=== PATIENT | male | born 1965 | race Caucasian/White ===

== ENCOUNTER → 2017-01-17 | Outpatient (CLI) | payer BC ==
[2017-01-17 08:53] LABS: CH 33.9; CHCM 35.3; HCT 46.8 % (39.0-53.0); HDW 2.63; MCH 32.8 pg (25.0-35.0); MCHC 34.1 g/dL (31.0-37.0); MCV 96.3 fL (80.0-100.0); Mean Platelet Volume 6.6; RBC 4.87 m/uL (4.30-5.90); RDW 12.3 % (11.5-15.5); WBC 6.4 k/uL (3.8-10.6)
[2017-01-17 09:29] LABS: ALT 51 U/L (21-72); AST 32 U/L (17-59); Alkaline Phosphatase 61 U/L (38-126); Anion Gap 10 mmol/L; Blood Urea Nitrogen 16 mg/dL (9-20); Calcium 9.3 mg/dL (8.4-10.2); Carbon Dioxide 27 mmol/L (22-30); Chloride 109 mmol/L (98-107); Cholesterol 227 mg/dL (<200); Glucose 85 mg/dL (74-99); HDL Cholesterol 45 mg/dL (40-60); Non-African American GFR(MDRD) >60 (>60 ml/min/1.73 sqM); Potassium 5.2 mmol/L (3.5-5.1); Sodium 146 mmol/L (137-145); Total Bilirubin 0.8 mg/dL (0.2-1.3); Total Protein 7.2 g/dL (6.3-8.2); Triglycerides 158 mg/dL (<150)
[2017-01-17 09:58] LABS: Prostate Specific Antigen 0.83 ng/mL (0.00-4.00)
== END | disposition home or self-care (01) ==
LOC: LABWHC1 08:19
PROVIDERS: ATTEND Internal Medicine
DX: Z00.00 Encounter for general adult medical examination without abnormal findings (principal); Z13.220 Encounter for screening for lipoid disorders; Z13.29 Encounter for screening for other suspected endocrine disorder
CPT/HCPCS: 36415; 80053; 80061; 84153; 84403; 84439; 84443; 85027

== ENCOUNTER → 2018-09-06 | Outpatient (CLI) | payer BC ==
[2018-09-06 10:16] LABS: HCT 46.4 % (39.0-53.0); HGB 15.9 gm/dL (13.0-17.5); MCH 32.8 pg (25.0-35.0); MCHC 34.2 g/dL (31.0-37.0); MCV 95.9 fL (80.0-100.0); Mean Platelet Volume 7.3; Platelet Count 243 k/uL (150-450); RBC 4.84 m/uL (4.30-5.90); RDW 11.9 % (11.5-15.5)
[2018-09-06 10:41] LABS: ALT 45 U/L (21-72); AST 28 U/L (17-59); Albumin 4.3 g/dL (3.5-5.0); Alkaline Phosphatase 56 U/L (38-126); Anion Gap 9 mmol/L; Blood Urea Nitrogen 18 mg/dL (9-20); C Reactive Protein 8.9 mg/L (<10.0); Calcium 9.5 mg/dL (8.4-10.2); Carbon Dioxide 26 mmol/L (22-30); Chloride 108 mmol/L (98-107); Cholesterol 238 mg/dL (<200); Glucose 82 mg/dL (74-99); HDL Cholesterol 42 mg/dL (40-60); LDL Cholesterol,Calculated 171 mg/dL (0-99); Potassium 4.5 mmol/L (3.5-5.1); Sodium 143 mmol/L (137-145); Total Bilirubin 0.9 mg/dL (0.2-1.3); Total Protein 7.4 g/dL (6.3-8.2); Triglycerides 123 mg/dL (<150)
[2018-09-06 10:52] LABS: T4, Free (Free Thyroxine) 0.79 ng/dL (0.78-2.19)
[2018-09-06 11:06] LABS: Prostate Specific Antigen 0.78 ng/mL (0.00-4.00)
== END ==
LOC: LABWHC1 08:26
PROVIDERS: ATTEND Obstetrics & Gynecology
DX: E78.00 Pure hypercholesterolemia, unspecified (principal); R53.83 Other fatigue; Z13.29 Encounter for screening for other suspected endocrine disorder
CPT/HCPCS: 36415; 80053; 80061; 83090; 84153; 84402; 84403; 84439; 84443; 85027; 86140

== ENCOUNTER → 2019-07-10 | Outpatient (CLI) | payer BC | END | disposition home or self-care (01) | LOC: LABWHC1 12:38 | PROVIDERS: ATTEND Internal Medicine | DX: K21.9 Gastro-esophageal reflux disease without esophagitis (principal); R11.0 Nausea | CPT/HCPCS: 87338 ==

== ENCOUNTER → 2020-01-14 | Outpatient (CLI) | payer BC | END | disposition home or self-care (01) | LOC: PROCWHC3 07:22 | PROVIDERS: ATTEND Obstetrics & Gynecology | DX: J11.1 Influenza due to unidentified influenza virus with other respiratory manifestations (principal) | CPT/HCPCS: 87502 ==

== ENCOUNTER → 2020-08-16 | Outpatient (CLI) | payer BC ==
--- NOTE | 2020-08-16 10:02 | XR ---
EXAMINATION TYPE: XR ribs bilateral DATE OF EXAM: 08/16/2020 COMPARISON: None HISTORY: Chest pain cervical pain pain lower ribs TECHNIQUE: Bilateral ribs are examined in 2 projections each. FINDINGS: No acute fractures are evident. No displaced rib fractures are evident. No pneumothorax is evident. Incidental note is made of bilateral renal stones.This measures 0.5 cm inferior pole left kidney 0.2 cm inferior pole right kidney and 0.2 cm inferior pole right kidney. IMPRESSION: 1. Normal bilateral ribs. 2. A 0.5 cm inferior pole left renal stone. Smaller 0.2 cm superior left renal stone may be present a s well. A 0.2 cm inferior pole right renal stone may be present.
--- NOTE | 2020-08-16 10:05 | XR ---
EXAMINATION TYPE: XR chest 2V DATE OF EXAM: 08/16/2020 COMPARISON: None INDICATION: Lower rib pain TECHNIQUE: Frontal and lateral views of the chest are obtained. FINDINGS: The heart size is normal. The pulmonary vasculature is normal. The lungs are clear. No pneumothorax is evident. The osseous structures as visualized are intact. IMPRESSION: 1. No acute pulmonary process. 2. No acute process evident.
--- NOTE | 2020-08-16 16:28 | XR ---
EXAMINATION TYPE: XR cervical spine comp DATE OF EXAM: 08/16/2020 COMPARISON: None HISTORY: Cervical pain TECHNIQUE: Five-view cervical spine FINDINGS: Prevertebral space is normal. There is exaggeration of the cervical lordosis. Posterior spi nal lamellar line is intact There is narrowing of disc height C3-4 through C6-7. Some left foraminal narrowing at C5-C6 is presen t remaining foramen are patent. Odontoid is visualized appears intact. Submental vertex and open-mout h odontoid views are obtained. Incisors limit the open-mouth odontoid view IMPRESSION: 1. Mild foraminal narrowing left C5-6. 2. Degenerative disc changes diffusely through the cervical spine
== END | disposition home or self-care (01) ==
LOC: RADXRMAIN 09:04
PROVIDERS: ATTEND Internal Medicine
DX: M48.02 Spinal stenosis, cervical region (principal); M50.30 Other cervical disc degeneration, unspecified cervical region; R07.89 Other chest pain
CPT/HCPCS: 71046; 71110; 72050

== ENCOUNTER → 2020-10-17 | Outpatient (CLI) | payer BC ==
--- NOTE | 2020-10-17 15:19 | CT ---
EXAMINATION TYPE: CT angio head DATE OF EXAM: 10/17/2020 COMPARISON: None HISTORY: 54-year-old male with Headaches TECHNIQUE: Contiguous axial scanning of the head performed without and with IV Contrast, patient inje cted with 100 mL of Isovue 300. Coronal/sagittal MIP reconstructions performed. 3-D reconstructions g enerated on a dedicated independent workstation. CT DLP: 2116.9 mGycm Automated exposure control for dose reduction was used. FINDINGS: Initial noncontrast CT head shows no evidence for acute intracranial hemorrhage, acute ischemic ledesma e, mass, mass effect, midline shift, or extra-axial fluid collection. No hydrocephalus. Slight asymme trically larger right lateral ventricle compatible with congenital variation. Moderate mucosal thickening left ethmoid air cells. Leftward nasal septal deviation. Mastoid air cell s well pneumatized. Orbits and globes are intact. Following IV contrast administration, we note a hypoplastic right vertebral artery that appears to te rminate as a PICA branch. There is also persistent origin right posterior cerebral artery. The bilateral internal carotid arteries are patent. Both anterior and posterior circulations are patent. 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 No aneurysmal change is identified IMPRESSION: 1. NONCONTRAST CT: NO ACUTE INTRACRANIAL ABNORMALITY SEEN. 2. 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 NO LARGE VESSEL INTRACR ANIAL ARTERIAL OCCLUSION, SIGNIFICANT STENOSIS, OR ANEURYSMAL CHANGE IS SEEN. 3. INCIDENTAL: MODERATE CHRONIC LEFT ETHMOID SINUS DISEASE. LEFTWARD NASAL SEPTAL DEVIATION.
== END | disposition home or self-care (01) ==
LOC: RADCTMAIN 13:39
PROVIDERS: ATTEND Internal Medicine
DX: Q28.3 Other malformations of cerebral vessels (principal)
CPT/HCPCS: 70496; Q9967

== ENCOUNTER → 2021-03-28 | Outpatient (CLI) | payer BC ==
--- NOTE | 2021-03-28 17:03 | XR ---
EXAMINATION TYPE: XR KUB DATE OF EXAM: 03/28/2021 4:47 PM CLINICAL HISTORY: Right-sided flank pain TECHNIQUE: Supine images of the abdomen and pelvis were obtained COMPARISON: Rib radiograph 08/16/2020 demonstrated 5 mm and 2 mm calcifications of the left renal shad ow and 2 mm calcification over the right renal shadow. FINDINGS: There is a nonspecific bowel gas pattern. The right renal interpolar and upper polar shadow is obscured by overlying colon. The calcification over the lower pole of the right kidney seen on comparison is not appreciated on current exam. There is likely a 2 mm calcification over the upper pole of the left kidney which is redemonstrated. The 5 mm calcification over the lower pole of the left kidney seen on 08/16/2020 comparison is not seen on current exam overlying the kidney. There are pelvic phleboliths bilaterally. There is also a very coarse calcification over the pelvis which d oes not have typical appearance for phlebolith. Right lower quadrant surgical clips. Osseous structur es are intact. Mild degenerative changes of the bilateral hips, left greater than right. IMPRESSION: 1. Nonspecific bowel gas pattern. 2. Of the 3 calcifications overlying the renal shadows bilaterally on 08/16/2020 comparison, only the 2 mm calcification over the upper pole of the left kidney is seen again on current exam. 3. Calcifications over the pelvis, some of which are indeterminate for phleboliths versus ureterovesi cular junction/bladder calculi. If there is persistent clinical concern, CT exam can be performed for further evaluation.
== END | disposition home or self-care (01) ==
LOC: RADXRMAIN 16:23
PROVIDERS: ATTEND Obstetrics & Gynecology
DX: N28.89 Other specified disorders of kidney and ureter (principal)
CPT/HCPCS: 74018

== ENCOUNTER → 2021-03-29 | Outpatient (CLI) | payer BC ==
--- NOTE | 2021-03-29 19:45 | CT ---
EXAMINATION TYPE: CT abdomen pelvis wo con DATE OF EXAM: 03/29/2021 COMPARISON: None available. HISTORY: Abdominal pain. No contrast. Renal stone protocol CT DLP: 388.5 mGycm Automated exposure control for dose reduction was used. TECHNIQUE: Helical acquisition of images was performed from the lung bases through the pelvis. FINDINGS: LUNG BASES: No significant abnormality is appreciated. LIVER/GB: No significant abnormality is appreciated. PANCREAS: No significant abnormality is seen. SPLEEN: No significant abnormality is seen. ADRENALS: No significant abnormality is seen. KIDNEYS: 3 mm nonobstructing left renal calculi. Multiple nonobstructing right renal calculi, at leas t 3 in number measuring up to 2 mm. No bilateral hydronephrosis. FREE AIR: No free air is visualized RETROPERITONEAL ADENOPATHY: None visualized REPRODUCTIVE ORGANS: No significant abnormality is seen URINARY BLADDER: No significant abnormality is seen. PELVIC ADENOPATHY: None visualized. OSSEOUS STRUCTURES: No acute abnormality is seen. Moderate L5-S1 spondylosis. BOWEL: No significant abnormality is seen. Appendectomy noted. OTHER: Benign prostate calcifications seen. IMPRESSION: NO ACUTE ABNORMALITY. NONOBSTRUCTING RENAL CALCULI.
== END | disposition home or self-care (01) ==
LOC: RADCTMAIN 17:23
PROVIDERS: ATTEND Internal Medicine
DX: N20.0 Calculus of kidney (principal)
CPT/HCPCS: 74176

== ENCOUNTER 2021-04-10 08:17 | Observation (INO) | payer BC ==
[2021-04-10] MEDS ORDERED: ONDANSETRON 4 MG/2 ML VIAL IVP STA (08:31)
[2021-04-10] MEDS ORDERED: SODIUM CHLORIDE 0.9% 1,000 ML IV ONE ×2 (08:31→12:08)
[2021-04-10] MEDS ORDERED: HYDROmorphone 1 MG/ML 1 ML SYRINGE IVP STA (08:31)
[2021-04-10 08:54] LABS: Basophils # (A) 0.1 k/uL (0-0.2); Basophils % (A) 1 %; Eosinophils # (A) 0.1 k/uL (0-0.7); Eosinophils % (A) 2 %; HCT 43.4 % (39.0-53.0); HGB 15.3 gm/dL (13.0-17.5); Lymphocytes # (A) 1.6 k/uL (1.0-4.8); Lymphocytes % (A) 25 %; MCH 33.3 pg (25.0-35.0); MCHC 35.3 g/dL (31.0-37.0); MCV 94.3 fL (80.0-100.0); Mean Platelet Volume 7.2; Monocytes # (A) 0.5 k/uL (0-1.0); Monocytes % (A) 8 %; Neutrophils # (A) 4.2 k/uL (1.3-7.7); Neutrophils % (A) 63 %; Platelet Count 248 k/uL (150-450); RBC 4.61 m/uL (4.30-5.90); RDW 11.6 % (11.5-15.5); WBC 6.6 k/uL (3.8-10.6)
[2021-04-10] MEDS ORDERED: KETOROLAC 15 MG/ML 1 ML VIAL IVP STA ×2 (08:58→10:45)
[2021-04-10 09:05] LABS: Albumin 4.3 g/dL (3.5-5.0); Calcium 9.4 mg/dL (8.4-10.2); Potassium 4.2 mmol/L (3.5-5.1); Total Bilirubin 0.6 mg/dL (0.2-1.3); Total Protein 7.3 g/dL (6.3-8.2)
--- NOTE | 2021-04-10 09:10 | ED ---
General Adult HPI - General Chief complaint: Back Pain/Injury Stated complaint: kidney stone Time Seen by Provider: 04/10/21 08:20 Source: patient, RN notes reviewed, old records reviewed Mode of arrival: ambulatory Limitations: no limitations - History of Present Illness Initial comments: This is a 55-year-old male who presents to the emergency department with left flank pain. Patient was diagnosed recently with kidney stones at the UVJ on both the right and left side. Patient is scheduled for surgery on Saturday. Patient states the pain is becoming unbearable and he is very nauseated. Patient denies any fever chills. Patient denies any chest pain or difficulty breathing. - Related Data Home Medications Medication Instructions Recorded Confirmed Acetaminophen Tab [Tylenol Tab] 1,000 mg PO Q6HR PRN 04/10/21 04/10/21 Ibuprofen [Motrin Ib] 400 - 600 mg PO Q6H PRN 04/10/21 04/10/21 Rosuvastatin Calcium 10 mg PO HS 04/10/21 04/10/21 Zolpidem Tartrate [Ambien Cr] 6.25 mg PO HS PRN 04/10/21 04/10/21 tadalafiL [Tadalafil] 5 mg PO DAILY PRN 04/10/21 04/10/21 Allergies Allergy/AdvReac Type Severity Reaction Status Date / Time No Known Allergies Allergy Verified 04/10/21 09:37 Review of Systems ROS Statement: Those systems with pertinent positive or pertinent negative responses have been documented in the HPI. ROS Other: All systems not noted in ROS Statement are negative. Past Medical History Past Medical History: Hyperlipidemia Additional Past Medical History / Comment(s): kidney stones History of Any Multi-Drug Resistant Organisms: None Reported Past Surgical History: Appendectomy Additional Past Surgical History / Comment(s): kidney stone removal. Past Psychological History: No Psychological Hx Reported Smoking Status: Never smoker Past Alcohol Use History: Occasional Past Drug Use History: None Reported General Exam - General Exam Comments Initial Comments: GENERAL: Patient is well-developed and well-nourished. Patient is nontoxic and well- hydrated and is in moderate distress. ENT: Neck is soft and supple. No significant lymphadenopathy is noted. Oropharynx i s clear. Moist mucous membranes. Neck has full range of motion without eliciting any pain. EYES: The sclera were anicteric and conjunctiva were pink and moist. Extraocular movements were intact and pupils were equal round and reactive to light. Eyelids were unremarkable. PULMONARY: Unlabored respirations. Good breath sounds bilaterally. No audible rales rhonchi or wheezing was noted. CARDIOVASCULAR: There is a regular rate and rhythm without any murmurs gallops or rubs. ABDOMEN: Soft and nontender with normal bowel sounds. SKIN: Skin is clear with no lesions or rashes and otherwise unremarkable. NEUROLOGIC: Patient is alert and oriented x3. Cranial nerves II through XII are grossly intact. Motor and sensory are also intact. Normal speech, volume and content. Symmetrical smile. MUSCULOSKELETAL: Normal extremities with adequate strength and full range of motion. LYMPHATICS: No significant lymphadenopathy is noted PSYCHIATRIC: Normal psychiatric evaluation. Limitations: no limitations Course Vital Signs 04/10/21 04/10/21 08:18 10:32 Temperature 97.5 F L Pulse Rate 69 72 Respiratory 16 18 Rate Blood Pressure 158/96 101/63 O2 Sat by Pulse 96 99 Oximetry Medical Decision Making - Medical Decision Making I spoke with Dr. Montalvo and he wanted the patient to be admitted 23 hour to him and he will take the patient to surgery later today Patient received Dilaudid and Toradol in the emergency department I reviewed the CAT scan and CAT scan showed bilateral UVJ stones with minimal if any high 20. KUB showed stones in the same place as they were previous - Lab Data Result diagrams: 04/10/21 08:43 04/10/21 08:43 Lab Results 04/10/21 04/10/21 04/10/21 Range/Units 08:43 08:43 10:47 WBC 6.6 (3.8-10.6) k/uL RBC 4.61 (4.30-5.90) m/uL Hgb 15.3 (13.0-17.5) gm/dL Hct 43.4 (39.0-53.0) % MCV 94.3 (80.0-100.0) fL MCH 33.3 (25.0-35.0) pg MCHC 35.3 (31.0-37.0) g/dL RDW 11.6 (11.5-15.5) % Plt Count 248 (150-450) k/uL MPV 7.2 Neutrophils % 63 % Lymphocytes % 25 % Monocytes % 8 % Eosinophils % 2 % Basophils % 1 % Neutrophils # 4.2 (1.3-7.7) k/uL Lymphocytes # 1.6 (1.0-4.8) k/uL Monocytes # 0.5 (0-1.0) k/uL Eosinophils # 0.1 (0-0.7) k/uL Basophils # 0.1 (0-0.2) k/uL Sodium 140 (137-145) mmol/L Potassium 4.2 (3.5-5.1) mmol/L Chloride 108 H (98-107) mmol/L Carbon Dioxide 24 (22-30) mmol/L Anion Gap 8 mmol/L BUN 18 (9-20) mg/dL Creatinine 1.13 (0.66-1.25) mg/dL Est GFR (CKD-EPI)AfAm 85 (>60 ml/min/1.73 sqM) Est GFR (CKD-EPI)NonAf 74 (>60 ml/min/1.73 sqM) Glucose 108 H (74-99) mg/dL Calcium 9.4 (8.4-10.2) mg/dL Total Bilirubin 0.6 (0.2-1.3) mg/dL AST 33 (17-59) U/L ALT 43 (4-49) U/L Alkaline Phosphatase 64 (38-126) U/L Total Protein 7.3 (6.3-8.2) g/dL Albumin 4.3 (3.5-5.0) g/dL Amylase 52 (30-110) U/L Lipase 97 (23-300) U/L Urine Color Yellow Urine Appearance Clear (Clear) Urine pH 5.5 (5.0-8.0) Ur Specific [place] 1.025 (1.001-1.035) Urine Protein Trace (Negative) Urine Glucose (UA) Negative (Negative) Urine Ketones Negative (Negative) Urine Blood Large (Negative) Urine Nitrite Negative (Negative) Urine Bilirubin Negative (Negative) Urine Urobilinogen <2.0 (<2.0) mg/dL Ur Leukocyte Esterase Negative (Negative) Urine RBC 86 H (0-5) /hpf Urine WBC 2 (0-5) /hpf Ur Squamous Epith Cells <1 (0-4) /hpf Urine Mucus Occasional H (None) /hpf Disposition Clinical Impression: Kidney stone Disposition: ADMITTED IP TO THIS HOSP Referrals: Eli Starkey MD [Primary Care Provider] - 1-2 days Time of Disposition: 12:08
[2021-04-10] MEDS ORDERED: HYDROmorphone 0.5 MG/0.5 ML SYRINGE IVP STA ×2 (10:46→11:19)
--- NOTE | 2021-04-10 10:46 | XR ---
EXAMINATION TYPE: XR KUB DATE OF EXAM: 04/10/2021 10:20 AM CLINICAL HISTORY: History of kidney stones with left-sided pain today. TECHNIQUE: Two Upright KUB images of the abdomen are obtained. COMPARISON: Abdominal x-ray dated 03/14/2021. CT abdomen and pelvis March 29, 2021. FINDINGS: Small nonobstructing bilateral calculi seen better on CT versus plain films, few are noted on plain films. There is stable bilateral lower pelvic calcifications consistent with distal calculi near UVJ. Surgical clips overlie the right pelvis near sacroiliac joint. No free air. Lung bases are clear. IMPRESSION: As above.
[2021-04-10 11:59] LABS: Mucus,Urine Occasional /hpf; RBC,Urine 86 /hpf (0-5); Squamous Epithelial Cell,Urine <1 /hpf (0-4); WBC,Urine 2 /hpf (0-5)
[2021-04-10 12:04] LABS: Appearance,Urine Clear (Clear); Bilirubin,Urine Negative (Negative); Blood,Urine Large (Negative); Color,Urine Yellow; Glucose,Urine (UA) Negative (Negative); Ketones,Urine Negative (Negative); PH, Urine 5.5 (5.0-8.0); Protein,Urine Trace (Negative); Specific Gravity,Urine 1.025 (1.001-1.035)
[2021-04-10 12:05] LABS: Leukocyte Esterase,Urine Negative (Negative); Nitrite,Urine Negative (Negative); Urobilinogen,Urine <2.0 mg/dL (<2.0)
[2021-04-10] MEDS ORDERED: HYDROmorphone 0.5 MG/0.5 ML SYRINGE IVP PRN (12:10)
--- NOTE | 2021-04-10 12:52 | P.GSHP ---
History of Present Illness H&P Date: 04/10/21 Chief Complaint: Left renal colic Juan Luis is a 55-year-old white male with history of urolithiasis. He has recently experienced urinary urgency and pressure to void. A computed tomography scan of the abdomen and pelvis showed bilateral small renal calculi. Although there is no evidence of hydronephrosis, calcifications are seen bilaterally in the region of the distal ureters suggesting the presence of bilateral distal ureteral calculus at the ureterovesical junctions. He now presents with intractable left flank pain and nausea. - Constitutional Constitutional: Denies chills, Denies fever - Cardiovascular Cardiovascular: Denies chest pain - Respiratory Respiratory: Denies dyspnea - Gastrointestinal Gastrointestinal: Reports nausea - Genitourinary (Male) Genitourinary: Reports flank pain, Reports kidney stones, Denies hematuria Past Medical History Past Medical History: Hyperlipidemia Additional Past Medical History / Comment(s): kidney stones History of Any Multi-Drug Resistant Organisms: None Reported Past Surgical History: Appendectomy Additional Past Surgical History / Comment(s): kidney stone removal. Past Psychological History: No Psychological Hx Reported Smoking Status: Never smoker Past Alcohol Use History: Occasional Past Drug Use History: None Reported Medications and Allergies Home Medications Medication Instructions Recorded Confirmed Type Acetaminophen Tab [Tylenol Tab] 1,000 mg PO Q6HR PRN 04/10/21 04/10/21 History Ibuprofen [Motrin Ib] 400 - 600 mg PO Q6H PRN 04/10/21 04/10/21 History Rosuvastatin Calcium 10 mg PO HS 04/10/21 04/10/21 History Zolpidem Tartrate [Ambien Cr] 6.25 mg PO HS PRN 04/10/21 04/10/21 History tadalafiL [Tadalafil] 5 mg PO DAILY PRN 04/10/21 04/10/21 History Allergies Allergy/AdvReac Type Severity Reaction Status Date / Time No Known Allergies Allergy Verified 04/10/21 09:37 Surgical - Exam Vital Signs Temp Pulse Resp BP Pulse Ox 97.5 F L 69 16 158/96 96 04/10/21 08:18 04/10/21 08:18 04/10/21 08:18 04/10/21 08:18 04/10/21 08:18 - General well developed, well nourished, moderate distress - Respiratory normal respiratory effort - Abdomen Abdomen: soft, non tender, no guarding, no rigid, no rebound - Psychiatric oriented to time, oriented to person, oriented to place, speech is normal, me heri intact Results - Labs 04/10/21 08:43 04/10/21 08:43 Abnormal Lab Results - Last 24 Hours (Table) 04/10/21 04/10/21 Range/Units 08:43 10:47 Chloride 108 H (98-107) mmol/L Glucose 108 H (74-99) mg/dL Urine RBC 86 H (0-5) /hpf Urine Mucus Occasional H (None) /hpf Diabetes panel 04/10/21 Range/Units 08:43 Sodium 140 (137-145) mmol/L Potassium 4.2 (3.5-5.1) mmol/L Chloride 108 H (98-107) mmol/L Carbon Dioxide 24 (22-30) mmol/L BUN 18 (9-20) mg/dL Creatinine 1.13 (0.66-1.25) mg/dL Glucose 108 H (74-99) mg/dL Calcium 9.4 (8.4-10.2) mg/dL AST 33 (17-59) U/L ALT 43 (4-49) U/L Alkaline Phosphatase 64 (38-126) U/L Total Protein 7.3 (6.3-8.2) g/dL Albumin 4.3 (3.5-5.0) g/dL Calcium panel 04/10/21 Range/Units 08:43 Calcium 9.4 (8.4-10.2) mg/dL Albumin 4.3 (3.5-5.0) g/dL Pituitary panel 04/10/21 Range/Units 08:43 Sodium 140 (137-145) mmol/L Potassium 4.2 (3.5-5.1) mmol/L Chloride 108 H (98-107) mmol/L Carbon Dioxide 24 (22-30) mmol/L BUN 18 (9-20) mg/dL Creatinine 1.13 (0.66-1.25) mg/dL Glucose 108 H (74-99) mg/dL Calcium 9.4 (8.4-10.2) mg/dL Adrenal panel 04/10/21 Range/Units 08:43 Sodium 140 (137-145) mmol/L Potassium 4.2 (3.5-5.1) mmol/L Chloride 108 H (98-107) mmol/L Carbon Dioxide 24 (22-30) mmol/L BUN 18 (9-20) mg/dL Creatinine 1.13 (0.66-1.25) mg/dL Glucose 108 H (74-99) mg/dL Calcium 9.4 (8.4-10.2) mg/dL Total Bilirubin 0.6 (0.2-1.3) mg/dL AST 33 (17-59) U/L ALT 43 (4-49) U/L Alkaline Phosphatase 64 (38-126) U/L Total Protein 7.3 (6.3-8.2) g/dL Albumin 4.3 (3.5-5.0) g/dL - Imaging CT scan - abdomen: report reviewed Assessment and Plan (1) Calculus of ureter Current Visit: No Status: Acute Code(s): N20.1 - CALCULUS OF URETER SNOMED Code(s): 81703754 Plan: Cystoscopy, bilateral ureteroscopy with Holmium laser lithotripsy and possible stone basketing, possible left ureteral stent placement. Potential risks include anesthesia, bleeding, infection, inability to successfully remove the calculi, and ureteral injury. A secondary procedure may be required.
[2021-04-10] MEDS ORDERED: IV FLUID CONTINUATION 1,000 ML IV ONE (15:14)
[2021-04-10] MEDS ORDERED: MIDAZOLAM 2 MG/2 ML VIAL IV ONE (15:53)
[2021-04-10] MEDS ORDERED: MIDAZOLAM 2 MG/2 ML VIAL ONE (17:06)
[2021-04-10] MEDS ORDERED: PROPOFOL 10 MG/ML 20 ML VIAL IV ONE (17:06)
[2021-04-10] MEDS ORDERED: fentaNYL (PF) 50 MCG/ML 2 ML AMP ONE (17:06)
[2021-04-10] MEDS ORDERED: LACTATED RINGERS 1,000 ML IV ONE (17:33)
[2021-04-10 18:24] VITALS: TEMP 97.1
--- NOTE | 2021-04-10 18:43 | P.OP ---
Date of Procedure: 04/10/21 Preoperative Diagnosis: Bilateral ureteral calculi Postoperative Diagnosis: Same Procedure(s) Performed: Cystoscopy, bilateral ureteroscopy with Holmium laser lithotripsy and stone basketing Anesthesia: NICK Surgeon: Tommy Montalvo Estimated Blood Loss (ml): 5 IV fluids (ml): 300 Pathology: other (Calculus fragments, sent for chemical analysis) Condition: stable Disposition: PACU Indications for Procedure: Juan Luis is a 55-year-old white male with history of urolithiasis. He has recently experienced urinary urgency and pressure to void. A computed tomography scan of the abdomen and pelvis showed bilateral small renal calculi. Although there is no evidence of hydronephrosis, calcifications are seen bilaterally in the region of the distal ureters suggesting the presence of bilateral distal ureteral calculus at the ureterovesical junctions. He now presents with intractable left flank pain and nausea. Operative Findings: Bilateral distal ureteral calculi, removed completely. Description of Procedure: The patient was taken to the operating room and placed in the dorsolithotomy position, with legs supported in Dillon stirrups. The external genitalia was prepped and draped sterilely. The 30 lens was used to introduce the 21-[place] Germain cystoscopic sheath through the urethra and into the bladder under direct vision. The prostatic urethra showed evidence of mild lateral lobe enlargement. The bladder was examined in its entirety. Both ureteral orifices were normal anatomic location and configuration, and clear urine effluxed from both. No tumors or foreign bodies were seen. A 10-[place] cone-tipped catheter was advanced through the each ureteral orifice to dilate the orifice. The Germain semirigid ureteroscope was advanced into the bladder, and the right ureteral orifice was cannulated. The ureteroscope was advanced several centimeters under direct vision, until a calculus was seen. The 272 micron Holmium laser probe was passed through the ureteroscope, and lithotripsy was performed. After fragmenting the calculus, a 1.9-[place] nitinol basket was used to retrieve the stone fragments, leaving them within the bladder. Some edema was noted at the site of ureteral stone impaction, but there was no evidence of ureteral perforation. The same was then repeated on the left side. The left distal ureteral calculus was located only 1-2 cm cephalad to the ureterovesical junction, and that calculus was somewhat smaller. Once again, after fragmenting the calculus, all fragments were removed via Stone basketing. Once again, it was confirmed that there was no evidence of ureteral trauma. The ureteroscope was removed, and the cystoscope was again advanced into the bladder. The bladder was irrigated, removing all calculus fragments. These were saved and sent for chemical analysis. The bladder was emptied and the cystoscope removed. The patient tolerated the procedure well and was taken to the recovery room in stable condition. [facility] [place] Report: Procedure Acuity: Urgent Stone Size and Location: Bilateral distal ureteral calculi, 5-6 mm each Ureteral Dilation: No Ureteral Access Sheath Used: No Stone Sent for Analysis: Yes All Stones/Fragments Were Removed with a Basket: Yes Complications: No Preoperative Antibiotics Given: Yes Stent Placed: No Discharge Medications: Toradol, [place]
[2021-04-10 18:47] VITALS: RESP 16
[2021-04-10] MEDS ORDERED: KETOROLAC 15 MG/ML 1 ML VIAL IVP PRN (19:08)
[2021-04-10 21:38] VITALS: BP 118/79; PULSE 46
== END 2021-04-10 21:41 | disposition home or self-care (01) ==
LOC: EC 08:17 → 5NMEDONC 12:08 → 4SSUR 13:53
PROVIDERS: ADMIT Urology; ATTEND Urology
DX: N20.2 Calculus of kidney with calculus of ureter (principal); E78.5 Hyperlipidemia, unspecified; Z79.899 Other long term (current) drug therapy; Z87.442 Personal history of urinary calculi; Z90.49 Acquired absence of other specified parts of digestive tract; Z98.890 Other specified postprocedural states
CPT/HCPCS: 96376 ×2; 96361; 96374; 96375; 99284; 36415; 80053; 82150; 83690; 85025; 81001; 82365; 74018; 52353; G0378 ×2; C1758; C1769; J2250; J0690; J2405; J3010; J1170 ×2; J1885; J2704

== ENCOUNTER → 2023-03-09 | Outpatient (CLI) | payer MEDICAID ==
[2023-03-09 13:23] LABS: Basophils # (A) 0.06 X 10*3/uL (0.00-0.10); Eosinophils # (A) 0.11 X 10*3/uL (0.04-0.35); Eosinophils % (A) 1.9 %; HCT 44.4 % (39.6-50.0); HGB 15.1 g/dL (13.0-17.0); Immature Grans, Automated 0.2 %; Lymphocytes # (A) 1.79 X 10*3/uL (0.90-5.00); Lymphocytes % (A) 30.1 %; MCH 32.5 pg (27.0-32.0); MCV 95.5 fL (80.0-97.0); Mean Platelet Volume 10.7 fL (9.5-12.2); Monocytes # (A) 0.52 X 10*3/uL (0.20-1.00); Monocytes % (A) 8.8 %; NRBC Per 100 WBC 0 /100 WBCS (0.0-0.0); Neutrophils # (A) 3.45 X 10*3/uL (1.80-7.70); Platelet Count 230 X 10*3/uL (140-440); RBC 4.65 X 10*6/uL (4.40-5.60); RDW 11.8 % (11.5-14.5); WBC 5.94 X 10*3/uL (4.50-10.00)
[2023-03-09 13:55] LABS: ALT 39 U/L (10-49); AST 28 U/L (14-35); African American GFR (CKD) 83.8 (60.0-200.0); Albumin 4.4 g/dL (3.8-4.9); Albumin/Globulin Ratio 1.78 (1.60-3.17); Alkaline Phosphatase 65 U/L (41-126); Blood Urea Nitrogen 16.5 mg/dL (9.0-27.0); Calcium 9.6 mg/dL (8.7-10.3); Carbon Dioxide 26.2 mmol/L (20.0-27.5); Chloride 107 mmol/L (96-109); Chol/HDL Ratio 3.65 Ratio; Globulin 2.5 g/dL (1.6-3.3); Glucose 88 mg/dL (70-110); LDL Cholesterol,Calculated 89.2 mg/dL (0.0-131.0); Non-African American GFR(CKD) 72.3 (60.0-200.0); Potassium 4.5 mmol/L (3.5-5.5); Sodium 142 mmol/L (135-145); Total Protein 6.9 g/dL (6.2-8.2)
== END | disposition home or self-care (01) ==
LOC: LABWHC1 08:22
PROVIDERS: ATTEND Internal Medicine
DX: Z00.01 Encounter for general adult medical examination with abnormal findings (principal); Z12.5 Encounter for screening for malignant neoplasm of prostate; E55.9 Vitamin D deficiency, unspecified; E78.00 Pure hypercholesterolemia, unspecified; R53.83 Other fatigue
CPT/HCPCS: 36415; 80053; 80061; 82306; 84153; 84443; 85025

== ENCOUNTER → 2023-09-17 | Outpatient (CLI) | payer MEDICAID ==
--- NOTE | 2023-09-18 13:25 | MR ---
EXAMINATION TYPE: MR lumbar spine wo con DATE OF EXAM: 09/17/2023 8:11 PM CLINICAL INDICATION:Male, 57 years old with history of M54.59, M54.50, M51.36, M62.830, S39.012D; PHH , Low back pain for 3 months that radiates into right buttocks COMPARISON: 03/29/2021 TECHNIQUE: Multi planar, multi sequence imaging was performed utilizing: T1-weighted, T2-weighted, a nd turbo inversion recovery imaging of the lumbar spine. IV Contrast: None (None if empty) FINDINGS: Alignment: The lumbar vertebral bodies have preserved heights and alignment. Cord: The conus medullaris and the distal spinal cord appear unremarkable with regards to their signa l intensity and morphology. Bones/Discs: Mild degeneration changes throughout the spine with osteophyte formation and facet joint arthropathy. Few scattered areas of Modic endplate changes most pronounced in the anterior superior aspect of the L3 and L4 vertebral bodies. Intervertebral disc signal is maintained. T12-L1: No evidence of significant spinal canal stenosis or neural foraminal stenosis. L1-L2: No evidence of significant spinal canal stenosis or neural foraminal stenosis. L2-L3: No evidence of significant spinal canal stenosis or neural foraminal stenosis. L3-L4: No evidence of significant spinal canal stenosis or neural foraminal stenosis. L4-L5: No evidence of significant spinal canal stenosis or neural foraminal stenosis. L5-S1: The disc is rounded posterior morphology without significant spinal canal stenosis. Facet join t arthropathy with mild right and moderate to severe left neural foraminal stenosis. No significant spinal canal or neural foraminal stenosis in the remainder of the visualized levels. Other findings: None. IMPRESSION: 1. No definitive evidence of disc herniation or significant spinal canal stenosis. 2. Mild disc degeneration with associated osteoarthritic changes with facet arthropathy worse at lef t L5-S1 with osteophyte impressing upon the exiting L5-S1 nerve with at least moderate to severe left neural foraminal stenosis.
== END | disposition home or self-care (01) ==
LOC: RADMRIMAIN 19:38
PROVIDERS: ATTEND Orthopaedic Surgery Orthopaedic Surgery of the Spine
DX: M47.817 Spondylosis without myelopathy or radiculopathy, lumbosacral region (principal); M62.830 Muscle spasm of back; S39.012D Strain of muscle, fascia and tendon of lower back, subsequent encounter; M51.37 Other intervertebral disc degeneration, lumbosacral region; M99.74 Connective tissue and disc stenosis of intervertebral foramina of sacral region; M25.78 Osteophyte, vertebrae; X58.XXXA Exposure to other specified factors, initial encounter
CPT/HCPCS: 72148

== ENCOUNTER → 2023-10-10 | Outpatient (CLI) | payer MEDICAID ==
[2023-10-10 09:09] VITALS: BP 124/80; PULSE 63; RESP 16; TEMP 97.7
--- NOTE | 2023-10-10 10:30 | P.PAINPG ---
PQRS Measure Charge Sheet Comment: HISTORY OF PRESENT ILLNESS: A 57 yr old male as a referral from Dr Cloud presents today w severe and chronic LBP secondary to DDD, spondylosis and facet arthropathy without myelopathy for evaluation. Pt states pain level is provoked at 4 /10 in intensity, constant, localized in the lower lumbar spine, predominantly axial, achy in character without shooting pain. Pain is provoked by sitting or laying supine for periods of 1 hr or more. Pain is alleviated by PT x 6 wks which ended in Aug 2023, heat, medications (Baclofen, Ibu), chiropractic treatments x 2 sessions in 2022, repositioning and rest. Oswestry axial pain score at 5. PMH: OA, Hyperlipidemia PSH: Basket Lithotripsy, Appendectomy SH: Never smoker, Occasional ETOH use, No illicit drug use FH: Non contributory All: See list Meds: See list REVIEW OF ORGAN SYSTEMS: CONSTITUTIONAL: No fevers or chills. No recent weight loss. NEUROLOGICAL: + numbness and tingling along the distal extremities. No seizure disorders or headaches. MUSCULOSKELETAL: + pain PSYCHIATRIC: Denies current depression or suicidal thoughts. Physical Examinations : Constitutional : Cooperative , not in acute distress . Neurologic : Cranial nerve II to XII intact. No focal neurological deficits. Psychiatric : alert & oriented x 3. Matching mood & appropriate affect. Judgment & insight intact. Musculoskeletal : Cervical Spine Motor strength in the deltoid and biceps: Normal right side. Normal Left side Motor strength biceps and the wrist extensors: Normal right side . Normal left side Motor strength in the triceps muscle: Normal right side. Normal left side Deep tendon reflexes: Normal at the biceps. Normal at Brachioradialis. Normal at triceps Vertebral body tenderness to deep palpation over Cervical facet loading test: positive bilaterally Spurling test: positive bilaterally Neck distraction test: positive bilaterally Emilia sign: positive bilaterally Lumbar spine Motor strength lower extremities ,thigh and legs 5/5 Right side , 5/5 Left side Deep tendon reflexes : Normal Knee Jerk. Normal Ankle Jerk Vertebral body tenderness over Pederson Test positive Lumbar facet Loading Test: positive Right / positive Left Range of motion of the lumbar spine Flexion 30 degrees, extension 10 degrees Straight Leg Raise test: Left/ Right positive at degree Vic test: positive right / positive left. Severe tenderness over the Sacroiliac joint on the Right / Left sides Gaenslen test: positive bilaterally Seated flexion test: positive bilaterally. Sacral spine : Severe tenderness over the Sacroiliac joint: right side / left side Range of motion: Flexion of the lumbar spine <60 degrees Range of motion: Extension of the lumbar spine <20 degrees Gaenslen's Test positive Vic test: positive right side / left side Thigh Thrust Test Sacral Thrust Test Imaging: MRI noncontrast of the lumbar spine from 09/17/23 reviewed Assessment/ Plan : Lumbar DDD Will manage residual pain and may RTC on an as needed basis. All questions answered. I have spent greater than 30 minutes on patient care today. Dr Stark was available by phone for the evaluation of this patient. The time was used to revi ew the medical records including relevant urine studies and Prescription history (MAPs), review of the available imaging, evaluation and examination of the patient, coordination of care with the medical staff and if applicable referring physicians, as well as creation of the medical record Home Medications: Ambulatory Orders Acetaminophen Tab [Tylenol Tab] 1,000 mg PO Q6HR PRN 04/10/21 HYDROcodone/APAP 5-325MG [Gifford 5-325] 1 - 2 tab PO Q4HR PRN #6 tab 04/10/21 Ibuprofen [Motrin Ib] 400 - 600 mg PO Q6H PRN 04/10/21 Ketorolac [Toradol] 10 mg PO Q6HR PRN #10 tab 04/10/21 Rosuvastatin Calcium 10 mg PO HS 04/10/21 Zolpidem Tartrate [Ambien Cr] 6.25 mg PO HS PRN 04/10/21 tadalafiL 5 mg PO DAILY PRN 04/10/21 Controlled Substance Measures - Controlled Substance Measures Is patient prescribed a controlled substance at discharge?: No
== END ==
LOC: PNWHC3 08:26
PROVIDERS: ATTEND Specialist
DX: M54.50 Low back pain, unspecified (principal); M51.36 Other intervertebral disc degeneration, lumbar region; M19.90 Unspecified osteoarthritis, unspecified site; E78.5 Hyperlipidemia, unspecified
CPT/HCPCS: 99211

== ENCOUNTER → 2024-01-21 | Outpatient (CLI) | payer MEDICAID ==
[2024-01-21 11:08] LABS: Basophils # (A) 0.06 X 10*3/uL (0.00-0.10); Basophils % (A) 0.8 %; Eosinophils # (A) 0.16 X 10*3/uL (0.04-0.35); Eosinophils % (A) 2.1 %; HCT 45.7 % (39.6-50.0); Lymphocytes # (A) 1.67 X 10*3/uL (0.90-5.00); Lymphocytes % (A) 21.6 %; MCH 32.9 pg (27.0-32.0); MCV 93.8 FL (80.0-97.0); Mean Platelet Volume 9.7 FL (9.5-12.2); Monocytes # (A) 0.73 X 10*3/uL (0.20-1.00); Monocytes % (A) 9.4 %; NRBC Per 100 WBC 0 X 10*3/uL (0.00-0.01); Neutrophils # (A) 5.08 X 10*3/uL (1.80-7.70); Neutrophils % (A) 65.6 %; Platelet Count 246 X 10*3/uL (140-440); RBC 4.87 X 10*6/uL (4.40-5.60); RDW 12.6 % (11.5-14.5); WBC 7.74 X 10*3/uL (4.50-10.00)
[2024-01-21 16:22] LABS: ALT 53 U/L (10-49); AST 24 U/L (14-35); Albumin 4.5 g/dL (3.8-4.9); Alkaline Phosphatase 67 U/L (41-126); BUN/Creat Ratio 16.08 Ratio (12.00-20.00); Blood Urea Nitrogen 19.3 mg/dL (9.0-27.0); Calcium 9.9 mg/dL (8.7-10.3); Carbon Dioxide 21.5 mmol/L (21.6-31.8); Chloride 109 mmol/L (96-109); Chol/HDL Ratio 5.72 Ratio; Globulin 2.5 g/dL (1.6-3.3); Glucose 85 mg/dL (70-110); LDL Cholesterol,Calculated 136.7 mg/dL (0.0-131.0); Potassium 4.7 mmol/L (3.5-5.5); Sodium 140 mmol/L (135-145); Total Bilirubin 0.3 mg/dL (0.3-1.2); Uric Acid 6.6 mg/dL (3.7-8.7)
== END | disposition home or self-care (01) ==
LOC: LABWHC1 07:49
PROVIDERS: ATTEND Internal Medicine
DX: Z00.01 Encounter for general adult medical examination with abnormal findings (principal); E55.9 Vitamin D deficiency, unspecified; M10.9 Gout, unspecified; E78.00 Pure hypercholesterolemia, unspecified
CPT/HCPCS: 36415; 80053; 80061; 82306; 84550; 85025

== ENCOUNTER → 2024-09-16 | Outpatient (CLI) | payer MEDICAID ==
[2024-09-16 10:44] LABS: Basophils # (A) 0.05 X 10*3/uL (0.00-0.10); Basophils % (A) 0.9 %; Eosinophils % (A) 1.7 %; HCT 44.3 % (39.6-50.0); HGB 15.5 g/dL (13.0-17.0); Lymphocytes # (A) 1.97 X 10*3/uL (0.90-5.00); Lymphocytes % (A) 34.2 %; MCH 33.4 pg (27.0-32.0); MCV 95.5 FL (80.0-97.0); Mean Platelet Volume 10.8 FL (9.5-12.2); Monocytes # (A) 0.54 X 10*3/uL (0.20-1.00); Monocytes % (A) 9.4 %; NRBC Per 100 WBC 0 X 10*3/uL (0.00-0.01); Neutrophils # (A) 3.09 X 10*3/uL (1.80-7.70); Neutrophils % (A) 53.6 %; Platelet Count 241 X 10*3/uL (140-440); RBC 4.64 X 10*6/uL (4.40-5.60); RDW 11.9 % (11.5-14.5); WBC 5.76 X 10*3/uL (4.50-10.00)
[2024-09-16 11:11] LABS: ALT 59 U/L (10-49); AST 44 U/L (14-35); Albumin 4.4 g/dL (3.8-4.9); Albumin/Globulin Ratio 1.83 Ratio (1.60-3.17); Alkaline Phosphatase 63 U/L (41-126); BUN/Creat Ratio 24.92 Ratio (12.00-20.00); Blood Urea Nitrogen 29.9 mg/dL (9.0-27.0); Calcium 9.6 mg/dL (8.7-10.3); Carbon Dioxide 25.6 mmol/L (21.6-31.8); Chloride 105 mmol/L (96-109); Chol/HDL Ratio 3.71 Ratio; Globulin 2.4 g/dL (1.6-3.3); Glucose 97 mg/dL (70-110); LDL Cholesterol,Calculated 114.1 mg/dL (0.0-131.0); Potassium 4.7 mmol/L (3.5-5.5); Sodium 141 mmol/L (135-145); Total Bilirubin 0.4 mg/dL (0.3-1.2); Total Protein 6.8 g/dL (6.2-8.2); VLDL Calculation 15.88 mg/dL (5.00-40.00)
== END | disposition home or self-care (01) ==
LOC: LABWHC1 07:54
PROVIDERS: ATTEND Internal Medicine
CPT/HCPCS: 36415; 80053; 80061; 82306; 85025

== ENCOUNTER → 2024-10-12 | Outpatient (CLI) | payer MEDICAID ==
--- NOTE | 2024-10-12 16:20 | US ---
EXAMINATION TYPE: US liver DATE OF EXAM: 10/12/2024 COMPARISON: CT: 03/29/21 CLINICAL INDICATION: Male, 58 years old with history of R94.5 ABNORMAL LFT'S; Abnormal LFT's TECHNIQUE: Grayscale and color Doppler imaging of the right upper quadrant was performed. FINDINGS: EXAM MEASUREMENTS: Liver Length: 16.2 cm Gallbladder Wall: 0.24 cm CBD: 0.21 cm Right Kidney: 11.3 x 5.1 x 5.4 cm [employer] NOTES: Pancreas: head obscured by overlying bowel gas. Parts seen appear wnl Liver: wnl coarsened echotexture no masses or dilated ducts are cysts. Gallbladder: wnl Evidence for sonographic Howard's sign: No CBD: wnl Right Kidney: wnl IMPRESSION: 1. No evidence for acute process. 2. Coarsened echotexture to liver correlate for hepatocellular disease. [facility], , 10/12/2024 4:17 PM
== END | disposition home or self-care (01) ==
LOC: RADUSWWP 06:59
PROVIDERS: ATTEND Internal Medicine
DX: R94.5 Abnormal results of liver function studies (principal); K76.89 Other specified diseases of liver
CPT/HCPCS: 76705

== ENCOUNTER → 2024-11-23 | Outpatient (CLI) | payer MEDICAID | END | disposition home or self-care (01) | LOC: LABWHC1 07:09 | DX: R79.89 Other specified abnormal findings of blood chemistry (principal) | CPT/HCPCS: 36415 ==